=== PATIENT | male | born 1995 | race Caucasian/White ===

== ENCOUNTER 2016-10-10 22:41 | Emergency (ER) | payer BC ==
[2016-10-11 00:35] VITALS: BP 117/72
[2016-10-11] MEDS ORDERED: Ondansetron INJ* 2 MG/ML VIAL IV ONE (01:07)
[2016-10-11] MEDS ORDERED: Morphine INJ* 4 MG/ML 1 ML CARPUJECT IV ONE (01:07)
[2016-10-11] MEDS ORDERED: NS 0.9% 1000 ML* 1,000 ML IV ONE (01:07)
--- NOTE | 2016-10-11 01:10 | ED ---
Upper Extremity Pain - HPI Summary HPI Summary: Patient fell three feet out of bed and landed on his left shoulder, suffering a dislocation. He denies previous dislocations. He has sensation throughout his LUE with positive wrist flexion and extension. He has not taken any pain medication. 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, Fall From Height Of: - 3 feet Onset/Duration: Started Hours Ago - 3 Timing: Constant Severity Initially: Severe Severity Currently: Severe Pain Location: Shoulder Character: Sharp, Aching Aggravating Factor(s): Movement Alleviating Factor(s): Nothing Associated Signs & Symptoms: Positive: Negative Related History: Dominant Hand Right - Allergies/Home Medications Allergies/Adverse Reactions: Allergies Allergy/AdvReac Type Severity Reaction Status Date / Time No Known Allergies Allergy Verified 04/25/14 08:28 PMH/Surg Hx/FS Hx/Imm Hx Previously Healthy: Yes - Surgical History Surgery Procedure, Year, and Place: HYDROCELE HERNIA. CIRCUMCISION Infectious Disease History: No Infectious Disease History: Denies: Traveled Outside the [place] in Last 30 Days - Family History Known Family History: Positive: None - Social History Occupation: Student Lives: With Family Alcohol Use: None Substance Use Type: Reports: None Smoking Status (MU): Never Smoked Tobacco Have You Smoked in the Last Year: No Review of Systems Positive: Myalgia, Decreased ROM Negative: Weakness, Paresthesia, Numbness All Other Systems Reviewed And Are Negative: Yes Physical Exam Triage Information Reviewed: Yes Vital Signs On Initial Exam: Initial Vitals Temp Pulse Resp BP Pulse Ox 97.4 F 84 18 131/77 100 10/10/16 22:55 10/10/16 22:55 10/10/16 22:55 10/10/16 22:55 10/10/16 22:55 Vital Signs Reviewed: Yes Appearance: Positive: Well-Appearing, Pain Distress, Thin Skin: Positive: Warm, Skin Color Reflects Adequate Perfusion, Dry, Soft Head/Face: Positive: Normal Head/Face Inspection Eyes: Positive: EOMI, WILIAM, Conjunctiva Clear ENT: Positive: Hearing grossly normal Neck: Positive: Supple, Nontender Respiratory/Lung Sounds: Positive: Breath Sounds Present Cardiovascular: Positive: RRR Musculoskeletal: Positive: Limited @ - no movement in the left shoulder possible due to pain, Pain @ - global TTP left shoulder Neurological: Positive: Sensory/Motor Intact, Alert, Oriented to Person Place, Time, NV Bundle Intact Distally Psychiatric: Positive: Affect/Mood Appropriate AVPU Assessment: Alert Procedures - Splinting Location: left shoulder Pre-Made Type: shoulder immobilizer Pre-Proc Neuro Vasc Exam: normal Post-Proc Neuro Vasc Exam: normal - Joint Reduction Joint Reduction Site: shoulder (L) Conscious Sedation: No Reduction Attempts: 1 Pre-Procedure NV Exam: Yes Post Joint Reduction Film: joint reduced Diagnostics - Vital Signs Vital Signs Temp Pulse Resp BP Pulse Ox 10/11/16 00:34 83 117/72 100 10/10/16 22:55 97.4 F 84 18 131/77 100 - Laboratory Lab Statement: Any lab studies that have been ordered have been reviewed, and results considered in the medical decision making process. - Radiology No standard instances Xray Interpretation: Positive (See Comments) Radiology Interpretation Completed By: ED Physician - Left anterior shoulder dislocation post-reduction Xray Interpretation: No Acute Changes Radiology Interpretation Completed By: Radiologist - Left shoulder is reduced Re-Evaluation - Re-Evaluation First Eval Re-Evaluation Time: 01:20 Change: Improved Comment: pain improved Course/Dx - Course Course Of Treatment: Patient is up from [facility] visiting his girlfriend, so he will follow-up with his PCP when he returns home for a referral to a local orthopedist. - Diagnoses Differential Diagnosis/HQI/PQRI: Positive: Arthritis, Bursitis, Contusion, Fracture (Closed), Hematoma, Strain, Sprain Provider Diagnoses: Dislocation of left shoulder joint Discharge - Discharge Plan Condition: Stable Disposition: HOME Prescriptions: oxyCODONE/Acetamin 5/325 MG* [Percocet 5/325 TAB*] 1 tab PO Q6H PRN #20 tab MDD 4 PRN Reason: Pain Patient Education Materials: Shoulder Dislocation (ED) Additional Instructions: Wear your immobilizer at all times except to shower or change clothes. Use ibuprofen 600mg three times daily with meals and add Percocet as needed for uncontrolled pain. Call your primary care provider when you return home for a referral to a local orthopedic doctor for evaluation and follow-up care. Return to the emergency department if symptoms worsen.
[2016-10-11] MEDS ORDERED: oxyCODONE/Acetamin 5/325 MG* TAB PO ONE (01:38)
--- NOTE | 2016-10-11 07:50 | RAD ---
INDICATION: Left shoulder injury COMPARISON: None TECHNIQUE: Routine frontal and Y views were obtained. FINDINGS: There is anterior dislocation. No underlying fracture is seen. Postreduction films are pending. IMPRESSION: ANTERIOR SHOULDER DISLOCATION.
--- NOTE | 2016-10-11 07:51 | RAD ---
INDICATION: Postreduction COMPARISON: Left shoulder same date TECHNIQUE: Routine frontal and Y views were obtained. FINDINGS: Routine 3 view imaging shows satisfactory reduction. No underlying fracture is seen. IMPRESSION: SATISFACTORY REDUCTION.
== END 2016-10-11 02:23 | disposition home or self-care (01) ==
LOC: ED 22:41
DX: S43.005A Unspecified dislocation of left shoulder joint, initial encounter (principal); W06.XXXA Fall from bed, initial encounter; Y93.9 Activity, unspecified; Y92.9 Unspecified place or not applicable; Y99.9 Unspecified external cause status
CPT/HCPCS: 23650; 96374; 96375; 99283; A9270-GY; J2270; J2405